=== PATIENT | male | born 1960 | race Caucasian/White ===

== ENCOUNTER 2022-05-30 16:09 | Emergency (ER) | payer BC, SELFPAY ==
[2022-05-30 16:11] VITALS: BP 156/99; PULSE 73; RESP 18; TEMP 36.2; O2SAT 99; BMI 24.0
[2022-05-30 16:48] VITALS: BP 156/99; PULSE 73; RESP 18; TEMP 36.2; O2SAT 99
--- NOTE | 2022-05-30 17:20 | CT_ITS ---
STUDY: CT ABDOMEN AND PELVIS WITHOUT CONTRAST REASON FOR EXAM: Male, 61 years old. Kidney Stone RADIATION DOSAGE (If Supplied By Facility): CTDIvol = ( 7.73 ) mGy, DLP = ( 403.57 ) mGycm TECHNIQUE: Transaxial images were obtained from the dome of the diaphragm to the symphysis pubis without oral contrast, and without intravenous contrast. Sagittal and coronal images were reconstructed. Individualized dose optimization techniques were used for this CT. COMPARISON: None. FINDINGS: The visualized lung bases are unremarkable. The visualized portions of the heart are within normal limits. Normal liver. Distended gallbladder with possible 2 mm stone in the cystic duct. No significant dilatation of the extrahepatic biliary system. Normal spleen. Normal pancreas. Normal bilateral adrenal glands. 2 mm stone in the right kidney. 4 mm stone in the left kidney. Normal visualized stomach. Normal small intestine. Normal colon. The appendix is visualized and appears normal. Normal abdominal aorta. Normal inferior vena cava. Normal retroperitoneum. 3 mm stone in the urinary bladder. Small fatty umbilical hernia. Normal osseous structures. CT/Abdomen/Pelvis without Cont IMPRESSION: Possible stone in the cystic duct. Bilateral renal calculi. Stone in the urinary bladder. Small fatty umbilical hernia. Electronically Signed: Mateusz Orellana DO at 18:21 EDT Reading Location ID and State: [facility] / [place] Tel [phone], Service support ,
--- NOTE | 2022-05-30 17:21 | EDS_ITS ---
HPI HPI - GI History of Present Illness Chief Complaint: Abd Pain Informant: patient Narrative Narrative: Sudden right lower quadrant abdominal pain persistent since noon that come in waves. Thought he felt nausea try to make himself throw up however no vomiting. No diarrhea. No urinary symptoms. History of kidney stones however is on the left side that feels similar. Last time 2 years ago. No surgical interventions. No allergies. Denies history of gastric ulcers or kidney injury, took Tylenol prior to arrival. Prior similar symptoms: Yes PFSH PFSH Medical History Kidney stones Home Medications NK 05/30/22 [History Last Taken Unknown] Allergy/AdvReac Type Severity Reaction Status Date / Time No Known Allergies Allergy Verified 05/30/22 16:12 Social History Smoking Status: Never smoker ROS ROS ED Constitutional Constitutional ED: Denies chills, fever(s) or sweats Eyes Eyes: Denies change in vision ENT ENT ED: Denies dysphagia or sore throat Cardiovascular Cardiovascular: Denies chest pain, leg edema, palpitations or racing heartbeat Respiratory/Chest Respiratory/Chest: Denies cough, dyspnea or dyspnea on exertion Gastrointestinal Gastrointestinal: Reports abdominal pain and nausea; Denies diarrhea or vomiting Genitourinary Genitourinary ED: Denies dysuria, hematuria or urinary frequency Musculoskeletal Musculoskeletal: Denies back pain, extremity pain or neck pain Integumentary Denies rash or wounds Neurologic Neurologic: Denies headache(s), paresthesias or weakness EXAM Physical Exam Const Vital Signs: 05/30/22 16:11 05/30/22 16:48 05/30/22 19:20 Temperature 97.2 F L 97.2 F L Temperature Source Temporal Temporal Pulse Rate 73 73 59 L Respiratory Rate 18 18 18 Blood Pressure 156/99 H 156/99 H 148/87 H Blood Pressure Mean 118 118 107 Pulse Ox 99 99 96 Oxygen Delivery Method Room Air Room Air Room Air 05/30/22 21:21 Temperature Temperature Source Pulse Rate Respiratory Rate Blood Pressure 162/77 H Blood Pressure Mean 105 Pulse Ox 97 Oxygen Delivery Method Room Air Positive well nourished and well developed Constitutional Narrative: Uncomfortable, nontoxic General Appearance ED: well developed HEENT Reports moist mucous membranes normocephalic and atraumatic Eyes PERRL, EOMs intact bilaterally and conjunctivae normal General Eye ED: Yes normal appearance of both eyes Neck no lymphadenopathy and supple General: Negative for tenderness Chest Wall Chest: Negative for tenderness Resp normal respiratory effort and normal air movement Effort and Inspection: symmetric chest movement; Negative for respiratory distress Cardio regular rate, regular rhythm and no murmurs Peripheral Pulses: pulses 2+ throughout GI normal to inspection, nondistended, normoactive bowel sounds GI Narrative: Tender deep palpation right lower quadrant, no guarding or rebound negative Rovsing's. No CVA tenderness. Palpation: Negative for guarding or rebound tenderness present Back/Spine no CVA tenderness and no thoracic nor lumbar tenderness Extremity normal to inspection General Extremety ED: Negative for edema or tenderness General Extremity: Negative for edema Neuro oriented x3 and no sensory deficits noted Sensorium / Orientation: awake and alert Skin no rashes or lesions noted and no wounds MDM MDM MDM Narrative Medical decision making narrative: DentalInterventions / MDM: Differential diagnosis: Kidney stone, UTI, appendicitis Diagnosis considered but do not suspect: N/A My EKG interpretation: N/A Imaging independently reviewed and interpreted by myself: CT abdomen pelvis: 3 mm stone currently in the bladder, no concerns for radiology of a 2 mm cystic duct with distended gallbladder. Gallbladder ultrasound: Distended gallbladder with sludge CBD 10 mm no gallstones. External documents reviewed: N/A Test considered but not ordered:N/A ED course: Patient presenting with renal colic symptoms history of similar. Renal stone protocol initiated given morphine Toradol Zofran and fluids. Labs stable urine negative for blood or infection. CT scan however notes current stone 3 mm in the bladder. Incidental findings of potential stone in cystic duct in the right upper quadrant. Added liver and lipase which was normal. Discussed with patient and ultrasound was obtained noting distended gallbladder with sludge and common bile duct of 10 mm. He is asymptomatic with this no vomiting no upper abdominal pain. His white count is normal. He is given follow-up with GI as an outpatient along with general surgery. Strict return precaution discussed with the patient. All questions were answered. Re-evaluation: stable Disposition discussed with patient/family/significant other: Patient Case discussed with consulting clinician: N/A Lab Data Labs: Laboratory Results - last 24 hr 05/30/22 05/30/22 05/30/22 17:35 17:35 17:35 WBC 9.0 RBC 5.54 Hgb 15.8 Hct 47.4 MCV 85.6 MCH 28.5 MCHC 33.3 RDW Std Deviation 41.2 RDW Coeff of Kat 13.2 Plt Count 251 MPV 10.4 Immature Gran % (Auto) 0.300 Neut % (Auto) 84.5 H Lymph % (Auto) 9.6 L [place] % (Auto) 4.6 Eos % (Auto) 0.6 Baso % (Auto) 0.4 Absolute Neuts (auto) 7.6 Absolute Lymphs (auto) 0.86 Nucleated RBC % 0 Sodium 139 Potassium 3.8 Chloride 107 Carbon Dioxide 29.0 Anion Gap 3 L BUN 22 H Creatinine 1.06 Estim Creat Clear Calc 86.16 Est GFR (MDRD) Af Amer 91 Est GFR (MDRD) Non-Af 76 BUN/Creatinine Ratio 20.8 H Glucose 115 H Calcium 9.3 Total Bilirubin 0.40 Direct Bilirubin 0.14 AST 16 ALT 23 Alkaline Phosphatase 90 Total Protein 7.3 Albumin 3.7 Globulin 3.6 Lipase Urine Color Urine Clarity Urine pH Ur Specific [place] Urine Protein Urine Glucose (UA) Urine Ketones Urine Occult Blood Urine Nitrite Urine Bilirubin Urine Urobilinogen Ur Leukocyte Esterase Urine RBC Urine WBC Ur Squamous Epith Cells Urine Bacteria Urine Mucus 05/30/22 05/30/22 17:35 19:00 WBC RBC Hgb Hct MCV MCH MCHC RDW Std Deviation RDW Coeff of Kat Plt Count MPV Immature Gran % (Auto) Neut % (Auto) Lymph % (Auto) [place] % (Auto) Eos % (Auto) Baso % (Auto) Absolute Neuts (auto) Absolute Lymphs (auto) Nucleated RBC % Sodium Potassium Chloride Carbon Dioxide Anion Gap BUN Creatinine Estim Creat Clear Calc Est GFR (MDRD) Af Amer Est GFR (MDRD) Non-Af BUN/Creatinine Ratio Glucose Calcium Total Bilirubin Direct Bilirubin AST ALT Alkaline Phosphatase Total Protein Albumin Globulin Lipase 35 Urine Color Yellow Urine Clarity Sl. Cloudy Urine pH 6.5 Ur Specific [place] 1.015 Urine Protein Negative Urine Glucose (UA) Normal Urine Ketones Negative Urine Occult Blood Negative Urine Nitrite Negative Urine Bilirubin Negative Urine Urobilinogen Normal Ur Leukocyte Esterase Negative Urine RBC 0 SEEN Urine WBC 0 SEEN Ur Squamous Epith Cells 0 SEEN Urine Bacteria 0 SEEN Urine Mucus 0 SEEN Radiography Diagnostic Testing: Clinical Impression(s) from Imaging Studies Abdomen/Pelvis CT 05/30/22 17:20 IMPRESSION: Possible stone in the cystic duct. Bilateral renal calculi. Stone in the urinary bladder. Small fatty umbilical hernia. Electronically Signed: Mateusz Orellana at 18:21 EDT , Gallbladder Ultrasound 05/30/22 19:56 IMPRESSION: Mild gallbladder wall thickening with sludge. Dilated common bile duct. Electronically Signed: Matuesz DO Esteban at 20:46 EDT , Discharge Plan Triage Chief Complaint: Abd Pain ED Provider: Gwyn Brian Dx/Rx/DC Orders Clinical Impression: Kidney stone on right side, Thickening of wall of gallbladder, Gallbladder sludge Instructions: ED Kidney Stone, Passed Prescriptions: No Action NK Primary Care Provider: Nitin Sanon Referrals: Deondre Hernandez MD [Med Staff - Active Staff] - 1-2 Weeks Nitin Sanon MD [Primary Care Provider] - 1 Week Marcello Gabriel DO [Med Staff - Active Staff] - 1-2 Weeks [facility] Doctor,Out of [Non-Staff] - Activity Restrictions/Additional Instructions: You presenting with kidney stone pain, and work-up your stone is currently in the bladder. Your urine is negative for infection or blood. White count kidney patient is normal incidental finding of potential cystic duct stone on CT, ultrasound of your gallbladder obtained there is no stone however notes distended gallbladder with sludge noted to common bile duct of 10 mm. Your lipase and liver enzymes were added and normal. You have no symptoms of gallbladder disease at this time. Follow-up with GI Dr. Gabriel, also follow-up with surgery Dr. Hernandez. Return if you develop epigastric or right upper quadrant pain with vomiting. Try to avoid fatty greasy foods or dairy foods. Disposition Disposition: Home, Self Care Discharge Date/Time: 05/30/22 22:19
[2022-05-30] MEDS: Ondansetron 4 MG/2 ML Vial IV (17:26)
[2022-05-30] MEDS: Ketorolac 15 MG/ML Vial IV (17:26)
[2022-05-30] MEDS: 0.9% Normal Saline 1,000 ML 250 ML IV (17:27)
[2022-05-30] MEDS: Morphine 4 MG/ML Syringe IV (17:27)
[2022-05-30 18:09] LABS: Absolute Lymphocyte Count 0.86 X10^3/uL (0.83-4.51); Absolute Neutrophil Count 7.6 X10^3/uL (2.0-7.7); Basophil# 0.04 X10^3/uL; Basophil% 0.4 % (0-1); Eosinophil# 0.05 X10^3/uL; Eosinophils% 0.6 % (0-5); Hematocrit 47.4 % (40-54); Hemoglobin 15.8 g/dL (13.0-16.5); Lymphocyte # 0.86 X10^3/ul (0.83-4.51); Lymphocyte % 9.6 % (19-41); Mean Corp Hgb Conc 33.3 g/dL (32-36); Mean Corpuscular Hgb 28.5 pg (27.0-32.0); Mean Corpuscular Volume 85.6 fL (80-94); Mean Platelet Vol. 10.4 fl (6.2-12.0); Monocyte# 0.41 X10^3/uL; Monocyte% 4.6 % (0-10); NRBC Flagged by Analyzer 0 % (0-5); Neutrophil # 7.58 X10^3/uL (2.7-7.7); Neutrophil % 84.5 % (47-70); Platelet Count 251 K/mm3 (150-450); RBC Distribution Width CV 13.2 % (11.6-14.6); RBC Distribution Width SD 41.2 fl (35.1-43.9); Red Blood Count 5.54 M/mm3 (4.6-6.2)
[2022-05-30 18:25] LABS: Anion Gap 3 (5-15); BUN 22 mg/dL (7-18); BUN/Creat Ratio 20.8 RATIO (10-20); Calcium,Total 9.3 mg/dL (8.5-10.1); Chloride 107 mmol/L (98-107); Creatinine, Serum 1.06 mg/dL (0.70-1.30); EST Glomerular Filtration Rate 76 mL/min (>60); Est Glom Filt Rate - Afr Amer 91 mL/min (>60); Estimated Creatinine Clearance 86.16 ml/min; Glucose 115 mg/dL (74-106); Potassium 3.8 mmol/L (3.5-5.1); Sodium Level 139 mmol/L (136-145)
[2022-05-30 19:08] LABS: Bacteria 0 SEEN /hpf (None Seen); Mucous, Urine 0 SEEN /hpf (<or=2+); Red Blood Cells-Urine 0 SEEN /hpf (0-5); Squamous Epithelial Cells - UA 0 SEEN /hpf (0-5); White Blood Cells 0 SEEN /hpf (0-5)
[2022-05-30 19:09] LABS: Color, Urine Yellow (Yellow); Glucose, Dipstick Normal (Normal); Ketone-Dipstick Negative (Negative); Leukocyte Esterase-Dipstick Negative /ul (Negative); Nitrite-Dipstick Negative (Negative); Occult Blood-Urine Negative /ul (Negative); Protein-Dipstick Negative (Negative); Specific Gravity, Urine 1.015 (1.002-1.030); Urine Bilirubin Dipstick Negative (Negative); Urine Clarity Sl. Cloudy (Clear); Urine Urobilinogen Normal (Normal); Urine pH 6.5 (5.0 - 8.0)
[2022-05-30 19:20] VITALS: BP 148/87; PULSE 59; RESP 18; O2SAT 96
--- NOTE | 2022-05-30 19:56 | US_ITS ---
INDICATION: distention -- possible cystic stone EXAMINATION: Ultrasound US Abdomen RUQ (limited) TECHNIQUE: Pérez-scale and color Doppler imaging was performed of the abdomen. COMPARISON: None. FINDINGS: LIVER: There is normal echotexture. No focal hepatic lesion. No intrahepatic biliary ductal dilatation. There is no free fluid. GALLBLADDER AND BILIARY TREE: No shadowing gallstone, pericholecystic fluid is demonstrated. Mild wall thickening of the gallbladder measuring 4 mm. Mild gallbladder sludge. The proximal common bile duct measures 10 mm, which is dilated. SONOGRAPHIC BRISENO''S SIGN: Negative. PANCREAS: Limited visualization of the pancreas. No pancreatic ductal dilatation. RIGHT KIDNEY: 10.7 x 4.9 x 5.1 cm. The cortex is 13 mm. There is no hydronephrosis. No shadowing calculus, focal lesion, or perinephric collection is demonstrated. VESSELS: Submitted longitudinal images of the intra-abdominal aorta demonstrate no gross abnormalities and are unremarkable. The IVC is patent. US/Gallbladder IMPRESSION: Mild gallbladder wall thickening with sludge. Dilated common bile duct. Electronically Signed: Mateusz Orellana DO at 20:46 EDT ,
[2022-05-30 19:58] LABS: Lipase 35 U/L (13-75)
[2022-05-30 20:06] LABS: AST(SGOT) 16 U/L (15-37); Alanine Aminotransfer ALT/SGPT 23 U/L (16-61); Albumin, Serum 3.7 g/dL (3.2-5.0); Alkaline Phosphatase 90 U/L (45-117); Bilirubin, Direct 0.14 mg/dL (0.00-0.30); Globulin 3.6 g/dL (2.2-4.2); Protein, Total 7.3 g/dL (6.4-8.2)
[2022-05-30 21:21] VITALS: BP 162/77; O2SAT 97
== END 2022-05-30 22:19 | disposition home or self-care (01) ==
PROVIDERS: Emergency Provider Emergency Medicine; PCP Family Medicine; Visit Provider Emergency Medicine
DX: N20.0 Calculus of kidney (principal); K82.8 Other specified diseases of gallbladder; K83.8 Other specified diseases of biliary tract
CPT/HCPCS: 74176; 76705; 80048; 80076; 81001; 83690; 85025; 96374; 96375; 99282; J7030; A4216; J2405